=== PATIENT | female | born 1960 | race Hispanic/Latino ===

== ENCOUNTER 2018-07-20 09:36 | Day surgery (SDC) | payer MEDICAID ==
[~2018-07-20] VITALS: Ht 154.9 cm; Wt 97.5 kg
[~2018-07-20 09:36] MED LIST: BISA5TAB12 PO; HYDR30CR79 RC; LACT1CAP58 PO; LINA145C PO; PANT40TA25 PO; PREG75 PO; SENN-107 PO; SODIUM CHLORIDE 0.9% 1000ML 1,000 ML IV ONE; SOLI5 PO; SUCR1TAB2 PO; TRAM-355 PO; WHEA236P PO; ZOLP5TAB8 PO
[2018-07-20 10:21] VITALS: BP 157/86
[2018-07-20] MEDS ORDERED: PROPOFOL 10 MG/ML 20ML VIAL IV ONE (11:05)
[2018-07-20 11:35] VITALS: BP 111/65
[2018-07-20 11:40] VITALS: BP 104/69
[2018-07-20 11:45] VITALS: BP 112/48
[2018-07-20 11:50] VITALS: BP 129/75
== END 2018-07-20 12:25 | disposition home or self-care (01) ==
LOC: DAH 09:36 → ENDO 09:36
PROVIDERS: ATTEND Internal Medicine
DX: K63.5 Polyp of colon (principal); K62.5 Hemorrhage of anus and rectum; K59.04 Chronic idiopathic constipation; E78.5 Hyperlipidemia, unspecified; K31.89 Other diseases of stomach and duodenum; K22.8 Other specified diseases of esophagus; K64.1 Second degree hemorrhoids; K57.30 Diverticulosis of large intestine without perforation or abscess without bleeding; K21.0 Gastro-esophageal reflux disease with esophagitis; K29.50 Unspecified chronic gastritis without bleeding; Z79.899 Other long term (current) drug therapy; Z98.890 Other specified postprocedural states
CPT/HCPCS: 43239; 45380; 88305; 88342; A4606; J2704; J7030